=== PATIENT | female | born 1990 | race African-American/Black ===

== ENCOUNTER 2018-02-13 11:40 | Inpatient (IN) | payer OTHER ==
--- NOTE | 2018-02-13 11:50 | EDPHY ---
H & P Stated Complaint: r upper quad abd and l sided back pain /sent from [facility] Time Seen by Provider: 02/13/18 11:50 - Personal History LMP (Females 10-55): IUD In Place Current Tetanus Diphtheria and Acellular Pertussis (TDAP): Yes - Medical/Surgical History Hx Asthma: No Hx Chronic Respiratory Disease: No Hx Diabetes: No Hx Cardiac Disease: No Hx Renal Disease: No Hx Cirrhosis: No Hx Alcoholism: No Hx HIV/AIDS: No Hx Splenectomy or Spleen Trauma: No Other PMH: denies - Social History Smoking Status: Never smoked Constitutional: Initial Vital Signs Temperature (C) 36.8 C 02/13/18 11:43 Heart Rate 63 02/13/18 11:43 Respiratory Rate 18 02/13/18 11:43 Blood Pressure 136/96 H 02/13/18 11:43 O2 Sat (%) 99 02/13/18 11:43 O2 Delivery Mode Room Air Allergies/Adverse Reactions: No Known Allergies Allergy (Verified 02/13/18 14:44) Home Medications: Medication Instructions Recorded Marlee 02/13/18 Medical Decision Making - Diagnostics Imaging Results: Imaging Impressions Abdomen/Pelvis Ultrasound 02/13/18 12:53 Impression: Normal study. Findings were discussed with Juve Goodman MD at 13:47, on 02/13/2018. Imaging: Discussed imaging studies w/ on call pharmacy technician Radiologist ED Course/Re-evaluation: CHIEF COMPLAINT: Abdominal pain, abnormal labs HISTORY OF PRESENT ILLNESS: This patient is a healthy 27 year old female. She presents today as she was referred from [facility] student [facility] for evaluation of abnormal lab results. She was recently evaluated for abdominal and flank pain beginning on Monday afternoon. She describes some epigastric pain which radiates straight through to her back. She endorses nausea. She endorses diarrhea on Monday and vomiting yesterday. Today, she had abnormal kidney function tests at the student clinic and presents for further evaluation. She denies fever, chest pain , shortness of breath, blood in her emesis or stool, urinary complaints, headache, or other associated symptoms. She denies personal or family history of kidney problems. REVIEW OF SYSTEMS: A comprehensive 10 system review of systems is otherwise negative aside from elements mentioned in the history of present illness and medical decision making. PHYSICAL EXAM: HR, BP, O2 Sat, RR. Temp noted General Appearance: Alert, well hydrated, appropriate, and non-toxic appearing. Head: Atraumatic without scalp tenderness or obvious injury Eyes: Pupils equal, round, reactive to light and accommodation, EOMI, no trauma , no injection. Ears: Clear bilaterally, no perforation, normal landmarks Nose: Atraumatic, no rhinorrhea, clear. Throat: There is no erythema or exudates, no lesions, normal tonsils, mucus membranes moist. Neck: Supple, 2+ carotid upstroke, nontender, no lymphadenopathy. Respiratory: No retractions, no distress, no wheezes, and no accessory muscle use. Lungs are clear to auscultation bilaterally. Cardiovascular: Regular rate and rhythm, no murmurs, rubs, or gallops. Bilateral carotid, radial, dorsalis pedis, and posterior tibial pulses intact. Good capillary refill all extremities. Gastrointestinal: Abdomen is soft, nontender, non-distended, no masses, no rebound, no guarding, no peritoneal signs. Musculoskeletal: Normal active ROM of all extremities, atraumatic. Neurological: Alert, appropriate, and interactive. The patient has normal DTRs and non-focal cranial nerves, motor, sensory, and cerebellar exam. Skin: No rashes, good turgor, no nodules on palpation. Past medical history: Denies Past surgical history: Noncontributory Family history: Noncontributory Social history: Student. Lives in [place]. Does not abuse tobacco, drugs, or alcohol. DIFFERENTIAL DIAGNOSIS: The differential diagnosis for the patient's abdominal pain included but was not limited to ovarian cyst, pelvic inflammatory disease, ovarian torsion, urinary tract infection, ectopic , cholecystitis, and appendicitis. MEDICAL DECISION [id number] y/o female presents at the request of [facility] for further evaluation after abnormal kidney function labs earlier today. She was noted to have elevated creatinine at 3.4 on two separate tests. Plan for labs including CBC, chemistries, UA, BHCG. Plan for US retroperitoneal abdomen. Reviewed laboratory results. Today, the patient's creatinine remains elevated at 3.8. Plan to consult with nephrology, complete imaging studies for further evaluation. 13:[address] Tristan, latex foam worker. Plan for US retroperitoneal abdomen to rule out acute obstructive processes. 13:[address] Navarrete, radiologist. US is unremarkable. Reviewed laboratory results. UA is positive for blood and protein; additionally there is low urine osmolarity. Given no observable obstructive processes, we will likely admit this patient for further evaluation. Plan to consult with nephrology. 14:[address] Tristan. Plan to admit patient for further evaluation and management of acute kidney injury including possible kidney biopsy. 14:[address] Killian, hospitalist. She accepts admission for acute kidney injury. - Data Points Laboratory Results: Laboratory Results 02/13/18 12:10 02/13/18 12:10 02/13/18 02/13/18 02/13/18 13:15 12:10 12:10 WBC RBC Hgb Hct MCV MCH MCHC RDW Plt Count MPV Neut % (Auto) Lymph % (Auto) Vernon % (Auto) Eos % (Auto) Baso % (Auto) Nucleat RBC Rel Count Absolute Neuts (auto) Absolute Lymphs (auto) Absolute Monos (auto) Absolute Eos (auto) Absolute Basos (auto) Absolute Nucleated RBC Immature Gran % Immature Gran # Sodium Potassium Chloride Carbon Dioxide Anion Gap BUN Creatinine Estimated GFR Glucose Calcium Phosphorus Pending Total Bilirubin Pending Conjugated Bilirubin Pending Unconjugated Bilirubin Pending AST Pending ALT Pending Alkaline Phosphatase Pending Total Protein Pending Albumin Pending Beta HCG, Qual NEGATIVE Urine Color PALE YELLOW Urine Appearance CLEAR Urine pH 6.0 (5.0-7.5) Ur Specific [place] 1.004 (1.002-1.030) Urine Protein 2+ H (NEGATIVE) Urine Ketones NEGATIVE (NEGATIVE) Urine Blood 2+ H (NEGATIVE) Urine Nitrate NEGATIVE (NEGATIVE) Urine Bilirubin NEGATIVE (NEGATIVE) Urine Urobilinogen NEGATIVE EU EU (0.2-1.0) Ur Leukocyte Esterase NEGATIVE (NEGATIVE) Urine RBC 1-3 /hpf /hpf (0-3) Urine WBC 1-3 /hpf /hpf (0-3) Ur Epithelial Cells NONE SEEN /lpf /lpf (NONE-1+) Urine Mucus TRACE /lpf /lpf (NONE-1+) Urine Osmolality 163 mosmo/kg L mosmo/kg (300-900) Ur Random Creatinine 69.8 mg/dL mg/dL Ur Random Sodium 21 mEq/L L mEq/L (30-90) Ur Random Potassium 11.8 mEq/L mEq/L (0.5-35.0) Urine Glucose NEGATIVE (NEGATIVE) 02/13/18 02/13/18 12:10 12:10 WBC 6.95 10^3/uL 10^3/uL (3.80-9.50) RBC 4.43 10^6/uL 10^6/uL (4.18-5.33) Hgb 12.2 g/dL L g/dL (12.6-16.3) Hct 37.7 % L % (38.0-47.0) MCV 85.1 fL fL (81.5-99.8) MCH 27.5 pg L pg (27.9-34.1) MCHC 32.4 g/dL g/dL (32.4-36.7) RDW 14.7 % % (11.5-15.2) Plt Count 388 10^3/uL 10^3/uL (150-400) MPV 8.6 fL L fL (8.7-11.7) Neut % (Auto) 65.3 % % (39.3-74.2) Lymph % (Auto) 24.3 % % (15.0-45.0) Vernon % (Auto) 9.1 % % (4.5-13.0) Eos % (Auto) 0.7 % % (0.6-7.6) Baso % (Auto) 0.3 % % (0.3-1.7) Nucleat RBC Rel Count 0.0 % % (0.0-0.2) Absolute Neuts (auto) 4.54 10^3/uL 10^3/uL (1.70-6.50) Absolute Lymphs (auto) 1.69 10^3/uL 10^3/uL (1.00-3.00) Absolute Monos (auto) 0.63 10^3/uL 10^3/uL (0.30-0.80) Absolute Eos (auto) 0.05 10^3/uL 10^3/uL (0.03-0.40) Absolute Basos (auto) 0.02 10^3/uL 10^3/uL (0.02-0.10) Absolute Nucleated RBC 0.00 10^3/uL 10^3/uL (0-0.01) Immature Gran % 0.3 % % (0.0-1.1) Immature Gran # 0.02 10^3/uL 10^3/uL (0.00-0.10) Sodium 137 mEq/L mEq/L (135-145) Potassium 4.0 mEq/L mEq/L (3.5-5.2) Chloride 106 mEq/L mEq/L (97-110) Carbon Dioxide 23 mEq/l mEq/l (22-31) Anion Gap 8 mEq/L mEq/L (6-14) BUN 24 mg/dL H mg/dL (7-23) Creatinine 3.8 mg/dL H mg/dL (0.6-1.0) Estimated GFR 14 Glucose 96 mg/dL mg/dL (70-100) Calcium 9.0 mg/dL mg/dL (8.5-10.4) Phosphorus Total Bilirubin Conjugated Bilirubin Unconjugated Bilirubin AST ALT Alkaline Phosphatase Total Protein Albumin Beta HCG, Qual Urine Color Urine Appearance Urine pH Ur Specific [place] Urine Protein Urine Ketones Urine Blood Urine Nitrate Urine Bilirubin Urine Urobilinogen Ur Leukocyte Esterase Urine RBC Urine WBC Ur Epithelial Cells Urine Mucus Urine Osmolality Ur Random Creatinine Ur Random Sodium Ur Random Potassium Urine Glucose Medications Given: Discontinued Medications Sodium Chloride (Ns) 1,000 mls @ 0 mls/hr IV ONCE ONE; Wide Open PRN Reason: Protocol Stop: 02/13/18 11:53 Last Admin: 02/13/18 12:13 Dose: 1,000 mls Departure - Departure Disposition: [facility] Inpatient Acute Clinical Impression: Acute kidney injury Condition: Fair Report Scribed for: Juve Goodman Report Scribed by: Maile Barcenas Date of Report: 02/13/18 Time of Report: 11:58
[2018-02-13] MEDS ORDERED: NS 1,000 ML IV ONE (11:52)
[2018-02-13 12:26] LABS: PLATELET COUNT 388 10^3/uL (150-400)
[2018-02-13] MEDS ORDERED: ONDANSETRON 4 MG/2 ML VIAL IVP PRN (14:42)
[2018-02-13] MEDS ORDERED: ONDANSETRON DISINTEGRATING 4 MG TAB PO PRN (14:42)
--- NOTE | 2018-02-13 15:10 | GHP ---
DATE OF ADMISSION: 02/13/2018 CHIEF COMPLAINT: BUSHRA. HISTORY OF PRESENT ILLNESS: A pleasant 27-year-old female with no past medical history was referred from [facility]. She was recently evaluated for abdominal and flank pain beginning on Monday afternoon. It was "crampy" in epigastrium that radiated to back; associated with some nausea and 2 episodes of diarrhea, Decreased p.o. intake since Monday, but has been drinking fluids. Took a total of 600 mg of Advil since that time to help with the pain. No weight gain or weight loss. No dysuria or urinary frequency. She traveled to the [facility] December 27 through , had some mild diarrhea upon returning, but has been doing fine since then. Denies lower extremity or abdominal swelling. No rash or skin lesions. No fevers, chills, or sweats. No recent URI symptoms. She was referred from clinic due to elevated creatinine which is 3.8. REVIEW OF SYSTEMS: I completed a 10-point review of systems, negative, except noted in HPI. PAST MEDICAL HISTORY: None. PAST SURGICAL HISTORY: None. FAMILY HISTORY: Maternal with diabetes. 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 Smokes occasional marijuana and drinks alcohol occasionally. No other illicits or cigarettes. MEDICATIONS: Had an IUD placed February 08, Advil 600mg in last 3 days ALLERGIES: none PHYSICAL EXAM: afebrile, 138/80, HR 60, 95%RA Gen: AAF, obese, NAD HEENT: PERRLA, oropharynx clear CV: RRR LUNGS: CTA, B GI: obese, soft, NT, ND, +BS : mild right CVA TTP MUSK: 5/5 UE/LE strength SKIN: warm, no rash or lesions NEURO: 2-12 intact PSYCH: A&OX3 LABS UA: +2 protein,+2 blood urine osm: 163, urine Na 21 Na 137, K 4.0, BUN 24, Cr 3.8, Ca 9.0, WBC 6.95, Hb12. Hct 37, Plt 388 ASSESSMENT AND PLAN: 1. Acute kidney injury: has had decreased p.o. intake over the last few days and some mild use of Advil. FeNa 0.8%. Unremarkable renal ultrasound. Concern is proteinuria. Check spot Cr/protein ratio. Dr. Tristan with Nephrology has been consulted. Will hydrate gently with fluids. Repeat labs. 2. Normocytic anemia: reports normal periods, denies any other bleeding 3. Diet, regular. 4. DVT ppx: low risk. DISPOSITION: Warrants observation admission given acute kidney injury, warranting further evaluation by Nephrology, IV fluids. /[id number]/MODL MTDD
[2018-02-13] MEDS: NS 1,000 ML IV SCH (16:17)
[2018-02-13 21:34] LABS: HEPATITIS B SURFACE ANTIGEN NEGATIVE (NEGATIVE)
[2018-02-13 21:56] LABS: HEPATITIS C ANTIBODY TOTAL NEGATIVE (NEGATIVE)
[2018-02-14] MEDS: NS 1,000 ML IV SCH ×2 (01:57→12:51)
[2018-02-14 05:51] LABS: INR 1.17 (0.83-1.16); PROTIME(PATIENT) 15.1 SEC (12.0-15.0)
--- NOTE | 2018-02-14 06:00 | GCON ---
DATE OF CONSULTATION: 02/13/2018 REASON FOR CONSULTATION: Acute renal failure. HISTORY OF PRESENT ILLNESS: I have been asked to evaluate Ms. Ross regarding her acute renal failu re. She is a 27-year-old woman with essentially no past medical history. She had s ome abdominal discomfort over the weekend, she describes epigastric discomfort radiating to her back. She was seen in clinic for this yesterday and had labs performed. These revealed a creatinine of g reater than 3 and she was subsequently referred to the emergency room. Here, repeat labs confirmed a creatinine of 3.8 with normal electrolytes. She has no known history of renal disease aside from an episode of renal dysfunction during a diarrheal illness in [place] 10 years ago. From her descripti on, this was prerenal azotemia that rapidly resolved with IV fluids. She denies any lower extremity edema, gross hematuria, or tea-colored urine. She denies any change in her urinary habits at all ove r the past several days. She denies any arthralgias or skin rashes. There is no family history of r enal disease that she is aware of. A renal ultrasound was unremarkable, however, a urinalysis was po sitive for 2+ protein and 2+ blood. For this reason, she was admitted to undergo urgent renal biopsy . She has not been using any aspirin products. She took a total of 3 tablets of ibuprofen over the past weekend. She notes that her abdominal discomfort resolved with a GI cocktail at the clinic yest erday. PAST MEDICAL HISTORY: Salmonella infection 10 years ago, complicated by prerenal azotemia. PAST SURGICAL HISTORY: Tonsillectomy. SOCIAL HISTORY: [place] and graduated from the [employer]. 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 She is a nonsmoker. She does drink occasionally. She denies illicit drug use. FAMILY HISTORY: No family history of renal disease that she is aware of. There are a few family mem bers with diabetes. ADMISSION MEDICATIONS: None. ALLERGIES: No known drug allergies. REVIEW OF SYSTEMS: Positive for epigastric discomfort and some nausea. She denies any diarrhea or a ctual vomiting. She is feeling completely well prior to Monday, and her complete 10 organ system r eview is completely negative aside from other positives noted in the HPI. PHYSICAL EXAM: GENERAL: She is well appearing, in no acute distress. VITAL SIGNS: Blood pressure is 129/83, heart rate 56, oxygenation is 96% on room air. HEENT: Sclerae are anicteric. Oral mucos a is moist, oropharynx is clear. NECK: Supple without JVD or lymphadenopathy. There are no carotid bruits. LUNGS: Completely clear to auscultation bilaterally. BACK: No CVA tenderness. She does have some mild tenderness in the region of her lumbosacral spine. HEART: Regular rate and rhythm. No murmurs, gallops, rubs. ABDOMEN: Obese, but soft and nontender. Bowel sounds are normoactive. There is no hepatosplenomegaly, masses, or bruits. EXTREMITIES: There is no lower extremity edema. Her feet are warm and appear well perfused. SKIN: There are no skin rashes. NEURO: She is awake, alert, and appropriate. There is no facial droop. : Rangel catheter is absent. LABS: Sodium 137, potassium 4.0, chloride 106, CO2 23, BUN 24, creatinine 3.8, glucose 96, calcium 9 .0, phosphorus 5.1, total bilirubin 0.6, AST 13, ALT 15, alkaline phosphatase 57, albumin 3.7, total protein 6.9, white blood cell count is 7.0, hemoglobin 12.2, platelets 388. UA showed a specific gra vity of 1.004, 2+ protein, 2+ blood, with only 1-3 red blood cells per high-power field. A random ur ine protein was ordered, but has not been resulted. Renal ultrasound documented kidneys measuring ne man 15 cm in length bilaterally without hydronephrosis or other abnormalities. IMPRESSION AND PLAN: 1. Acute renal failure: No prior laboratory data is available, she does state that she had complete ly normal lab work performed in October. I do suspect that this is acute. The hematuria and prote inuria are concerning for a possible glomerulonephritis, though her actual sediment is not particular ly active. Options include observing her for a period of time for spontaneous recovery or proceeding immediately to renal biopsy. I strongly feel that proceeding to immediate biopsy is prudent. She h as been started on gentle IV fluids, I think this is reasonable for now. I would like to repeat a ur inalysis tomorrow morning. Theoretically, if her creatinine is dramatically improved and her repeat urinalysis is much less impressive, the biopsy could be canceled. However, at this time, I think shari t is unlikely and I do feel that she needs to obtain a definitive diagnosis sooner rather than later. I do not feel that the diagnosis is obviously rapidly progressive glomerulonephritis and therefore will not start empiric steroid therapy tonight. Tomorrow, we will need to decide whether she should remain hospitalized until her biopsy results are known or whether she can discharge home and follow u p with us as an outpatient. This will depend largely on her repeat labs tomorrow. I will send a ser ologic evaluation tonight, though this will not be resulted prior to her biopsy. Depending on the bi opsy results the initial serologies are frequently helpful. She should absolutely avoid aspirin cont aining products as well as NSAIDs. I will ask for Interventional Radiology to perform a biopsy tomor danette and will make her n.p.o. in preparation for this. Coagulation studies will be checked. I did de scribe the renal biopsy procedure in detail with her including the theoretical risk of bleeding. She agrees to proceed. 2. Abdominal pain: This has resolved, and from her description, may have simply been due to reflux. Thank you for the consultation. We will follow with you. /[id number]/MODL
--- NOTE | 2018-02-14 12:25 | ASMTCMCOM ---
CM Note CM Note Notes: Reviewed chart, pt admitted to hospital for abd and flank pain. She is a PH.d student at and otherwise independent. Will have repeat labs tomorrow and possible renal bx. Anticipate she will dc independent when medically stable. CM available for any changes. DC Plan: Independent Date Signed: 02/14/2018 12:24 PM Electronically Signed By:Nikia Brock RN
--- NOTE | 2018-02-14 12:26 | ASMTCMCOM ---
CM Note CM Note Notes: Pt has concerns about ins coverage, she was given the number to financial counseling. Date Signed: 02/14/2018 12:26 PM Electronically Signed By:Nikia Brock RN
[2018-02-14] MEDS ORDERED: hydrALAZINE 20 MG/ML VIAL IVP PRN (13:27)
[2018-02-14] MEDS ORDERED: FLUMAZENIL 0.5 MG/5 ML MDV IVP PRN (13:27)
[2018-02-14] MEDS ORDERED: GLUCAGON HCL 1 MG VIAL IVP PRN (13:27)
[2018-02-14] MEDS ORDERED: PROTAMINE SULFATE 50 MG/5 ML VIAL IVP PRN (13:27)
[2018-02-14] MEDS ORDERED: ALTEPLASE 2 MG VIAL IVP PRN (13:27)
[2018-02-14] MEDS ORDERED: NALOXONE HCL 0.4 MG/ML INJ IVP PRN (13:27)
[2018-02-14] MEDS ORDERED: HEPARIN 10,000 UNIT/10 ML MDV (1,000 UNIT/ML) IVP PRN (13:27)
[2018-02-14] MEDS ORDERED: MEPERIDINE 25 MG/ML SYR IVP PRN (13:27)
[2018-02-14] MEDS ORDERED: MIDAZOLAM 2 MG/2 ML VIAL IVP PRN (13:27)
[2018-02-14] MEDS ORDERED: NS 1,000 ML IV SCH (13:30)
[2018-02-14] MEDS ORDERED: LIDOCAINE 1% 300 MG/30 ML SDV ONE (14:24)
[2018-02-14] MEDS ORDERED: NALOXONE HCL 0.4 MG/ML INJ ONE (14:49)
[2018-02-14] MEDS ORDERED: FLUMAZENIL 0.5 MG/5 ML MDV IVP ONE (14:49)
[2018-02-14] MEDS ORDERED: fentaNYL 100 MCG/2 ML INJ ONE ×2 (14:49→17:23)
[2018-02-14] MEDS ORDERED: MIDAZOLAM 2 MG/2 ML VIAL ONE (14:49)
--- NOTE | 2018-02-14 15:35 | PDPROPOC ---
Sedation Plan of Care Sedation Plan of Care: vital signs stable, mental status noted, patient educated of risks, benefits, alternatives, patient can tolerate sedation ASA Classification: ASA 2 Planned drugs: fentanyl, midazolam Mallampati Score: Class 1 Mallampati Reference Image: Patient passed 3-3-2 rule?: Yes
--- NOTE | 2018-02-14 15:36 | PDRADPN ---
Radiology Procedure Note Date of Procedure: 02/14/18 Radiologist: Alicia Cuello Anesthesia: IV Sedation Pre-op Diagnosis: ACUTE RENAL FAILURE Post-op Diagnosis: SAME Indication: NEED TISSUE DIAGNOSIS Procedure: CT GUIDED LT KIDNEY BIOPSY Finding(s): SMALL SOLEDAD-NEPHRIC HEMATOMA POST BIOPSY AT LOWER POLE Inf/Abcess present in the surg proc area at time of surgery?: No
[2018-02-14] MEDS ORDERED: LEVONORGESTREL IY SCH (16:00)
--- NOTE | 2018-02-14 16:03 | HOSPPROG ---
Hospitalist Progress Note Assessment/Plan: 27y female with c/o abd pain. First encounter, chart reviewed. #BUSHRA -etiol unclear -renal bx today -nephrology following #Abd pain -resolved #Normocytic anemia -unlcear #Hematuria -per labs #Dispo -unclear -renal function still elevate -await nephrology recs -change to inpt status Subjective: Wants to go home. Feeling better. Objective: Vital Signs Temp Pulse Resp BP Pulse Ox 36.3 C 61 16 125/87 H 98 02/14/18 11:58 02/14/18 11:58 02/14/18 11:58 02/14/18 11:58 02/14/18 11:58 Laboratory Results 02/14/18 05:16 02/13/18 02/14/18 02/15/18 05:59 05:59 05:59 Intake Total 2700 Output Total 200 Balance 2500 PT 15.1 SEC (12.0-15.0) H 02/14/18 05:16 INR 1.17 (0.83-1.16) H 02/14/18 05:16 - Physical Exam Constitutional: no apparent distress, appears nourished, not in pain Eyes: PERRL, anicteric sclera, EOMI Ears, Nose, Mouth, Throat: moist mucous membranes, hearing normal, ears appear normal Cardiovascular: regular rate and rhythym, No JVD, No edema Respiratory: no respiratory distress, no rales or rhonchi, reduced air movement Gastrointestinal: normoactive bowel sounds, No tenderness, No ascites Skin: warm, normal color, No mottled Musculoskeletal: full muscle strength, no muscle tenderness, no joint effusions Neurologic: AAOx3 Psychiatric: interacting appropriately, not anxious, not encephalopathic ICD10 Worksheet Patient Problems: Problems Problem Status Onset Acute kidney injury Acute
[2018-02-14] MEDS: fentaNYL 100 MCG/2 ML INJ IVP PRN ×2 (16:06→17:24)
--- NOTE | 2018-02-14 16:52 | SOAPPROG ---
SOAP Progress Note Assessment/Plan: Assessment: 1. arf: creat, UA essentially unchanged today and just underwent bx. Per note had small perinephric hematoma and h/h ordered for later tonight. Would observe overnight, if hgb stable could d/c home in am. She has my card and can f/u with me in office. Plan: 02/14/18 16:51 Subjective: pt off floor for bx, not seen. Chart reviewed. Objective: Vital Signs Temp Pulse Resp BP Pulse Ox 36.3 C 61 16 151/91 H 99 02/14/18 11:58 02/14/18 11:58 02/14/18 11:58 02/14/18 16:19 02/14/18 16:19 Laboratory Results 02/14/18 05:16 02/13/18 02/14/18 02/15/18 05:59 05:59 05:59 Intake Total 2700 125 Output Total 200 Balance 2500 125 PT 15.1 SEC (12.0-15.0) H 02/14/18 05:16 INR 1.17 (0.83-1.16) H 02/14/18 05:16 ICD10 Worksheet Patient Problems: Problems Problem Status Onset Acute kidney injury Acute
--- NOTE | 2018-02-14 17:05 | PDMN ---
Medical Necessity Medical necessity: Change to inpt as of 02/14/17 @ 1603 per MD order and MCG [id number] , Renal Failure, Acute, 3 days. 27 y/o w/abd pain admitted w/BUSHRA of unclear etiology, normocytic anemia, and hematuria. Upgrade to inpt status for persistent elev creatinine (3.6 today, 3.8 on admit), further w/u needed, renal bx today, nephrology consult. Est LOS>2MN for ongoing eval/management of above.
[2018-02-14] MEDS: ACETAMINOPHEN 325 MG TAB PO PRN (23:56)
[2018-02-15] MEDS: ACETAMINOPHEN 325 MG TAB PO PRN (05:43)
--- NOTE | 2018-02-15 10:52 | SOAPPROG ---
SOAP Progress Note Assessment/Plan: Assessment/Plan: BUSHRA: with hematuria and proteinuria, unclear etiology. - Cr remained stable. - Serological workup sent and pending. - Renal biopsy done yesterday, results likely to come back tomorrow. - Will f/u as outpatient. Anemia: s/p renal biopsy, noted to have small perinephric hematoma. - Recheck Hgb at noon, if stable then can be discharged. - Strongly advised pt to avoid all blood thinners, including NSAIDs. Subjective: No acute events overnight. Pt states she tolerating biopsy well, no hematuria, just a little sore at biopsy site. She has no swelling in legs, no dyspnea, no chest pain. Objective: Vital Signs Temp Pulse Resp BP Pulse Ox 36.9 C 66 16 125/77 H 96 02/15/18 08:00 02/15/18 08:00 02/15/18 08:00 02/15/18 08:00 02/15/18 08:00 Laboratory Results 02/15/18 05:00 02/14/18 02/15/18 02/16/18 05:59 05:59 05:59 Intake Total 3000 Output Total 300 Balance 2700 PT 15.1 SEC (12.0-15.0) H 02/14/18 05:16 INR 1.17 (0.83-1.16) H 02/14/18 05:16 General: alert and oriented, no acute distress Eyes: EOMI, PERRL OP: Clear CV: RRR Resp: nonlabored respirations on RA, CTAB Abd: Soft, NT/ND, biopsy site with no swelling or bleeding Ext: no edema BLE Neuro: CN II-XII grossly intact Psych: cooperative, appropriate mood and affect Skin: C/D/I, no rash ICD10 Worksheet Patient Problems: Problems Problem Status Onset Acute kidney injury Acute
[2018-02-15 12:21] VITALS: BP 131/80
--- NOTE | 2018-02-15 14:13 | GDS ---
DISCHARGE DIAGNOSES: 1. Acute kidney injury. 2. Anemia. CONSULTATIONS: Nephrology. STUDIES AND PROCEDURES DONE: 1. Renal ultrasound. 2. Renal biopsy. PHYSICAL EXAM: GENERAL: The patient is alert. VITAL SIGNS: Afebrile at 36.8, pulse 68, respirator y rate 16. Blood pressure is 131/80. She is saturating 94% on room air. I have seen and evaluated the patient on the day of discharge. HOSPITAL COURSE: The patient is a 27-year-old female who presented to the emergency room with compla ints of abdominal pain. She was evaluated and diagnosed with acute kidney injury. This was in the s etting of hematuria, as well as proteinuria. The patient did receive a consultation from Nephrology during this hospitalization. A renal biopsy was performed, with results pending at the time of dispo sition. She was noted to also be mildly anemic with a normocytic anemia. Laboratory values prior to disposition are stable. She has no signs of bleeding or continued blood loss. Her renal biopsy is pending at the time of discharge. I have discussed the patient's disposition with the patients transporter o n-call, who is in agreement with the plan. The patient will be discharged home independently and fol lowup in the outpatient setting with Dr. Tristan for biopsy results. DISCHARGE MEDICATIONS: Please refer to EMR form. I have not provided any prescriptions for the megan ent at the time of disposition. Diet restrictions: I have told the patient to have a low-potassium, as well as low-sodium diet and avoid any nephrotoxic medications, including ibuprofen. She is in ag reement with this plan and understands the importance of this. I spent greater than 35 minutes in the care, coordination, and management of this patient's dispositi on. /[id number]/MODL
== END 2018-02-15 14:49 | disposition home or self-care (01) | DRG 684 ==
LOC: F3E 15:39 → OBSVTOIN 02-14 16:03
PROVIDERS: ADMIT Internal Medicine; ATTEND Internal Medicine
PROC: 0TB13ZX Excision of Left Kidney, Percutaneous Approach, Diagnostic (ICD-10-PCS; principal; 2018-02-14 16:19)
DX: N17.9 Acute kidney failure, unspecified (principal); D64.9 Anemia, unspecified; R31.9 Hematuria, unspecified; R80.9 Proteinuria, unspecified
CPT/HCPCS: 88305-90; 88313-90; 88346-90; 88348-90; G0378; G0472; J2250; J2310; J3010